=== PATIENT | female | born 1970 | race Caucasian/White ===

== ENCOUNTER 2018-12-18 12:34 | Emergency (ER) | payer OTHER ==
[~2018-12-18] VITALS: Ht 157.5 cm; Wt 59.1 kg
[2018-12-18] MEDS ORDERED: METHOCARBAMOL 500 MG TABLET PO ONE (14:15)
[2018-12-18] MEDS ORDERED: KETOROLAC TROMETHAMINE 10 MG TABLET PO ONE (14:15)
[2018-12-18 14:37] VITALS: BP 115/75
== END 2018-12-18 14:39 | disposition home or self-care (01) ==
LOC: EMS 12:36
DX: S13.4XXA Sprain of ligaments of cervical spine, initial encounter (principal); S40.012A Contusion of left shoulder, initial encounter; S20.212A Contusion of left front wall of thorax, initial encounter; M79.10 Myalgia, unspecified site; V49.9XXA Car occupant (driver) (passenger) injured in unspecified traffic accident, initial encounter; Y93.89 Activity, other specified; Y92.89 Other specified places as the place of occurrence of the external cause; Y99.8 Other external cause status